=== PATIENT | male | born 1960 | race Caucasian/White ===

== ENCOUNTER 2020-04-03 11:59 | Inpatient (IN) ==
[2020-04-03 13:45] LABS: Bacteria,Urine Few per hpf (None-Few); Bilirubin,Urine Negative (Negative); Blood,Urine Small (Negative); Clarity,Urine Turbid (Clear); Color,Urine Yellow (Yellow); Glucose,Urine (UA) Normal (Normal); Ketones,Urine Negative (Negative); Leukocyte Esterase,Urine Moderate (Negative); Mucus,Urine Many per lpf (None-Few); Nitrite,Urine Positive (Negative); Protein,Urine 30 mg/dL (Neg-Trace); Specific Gravity,Urine 1.026 (1.010-1.025); Squamous Epithelial Cell,Urine Few per hpf (None-Few); WBC,Urine 50-100 per hpf (0-3)
[2020-04-03 14:02] LABS: Basophils % 0.5 %; Eosinophils # 0.1 K/mcL (0.0-0.6); Eosinophils % 1.5 %; Hematocrit 37.8 % (37.5-50.1); Hemoglobin 12.3 g/dL (12.9-16.9); Immature Granulocytes % 0.7 % (0-4); Lymphocytes # 1.4 K/mcL (0.6-4.6); Lymphocytes % 16.5 %; Mean Corpuscular HGB Conc 32.5 g/dL (31.6-35.5); Mean Corpuscular Hemoglobin 29.8 pg (28.0-33.3); Mean Corpuscular Volume 91.5 fL (83.0-100.0); Mean Platelet Volume 10.1 fL (9.4-12.4); Monocytes # 0.6 K/mcL (0.0-1.3); Monocytes % 7.3 %; Neutrophils # 6.1 K/mcL (1.6-8.9); Platelet Count 220 K/mcL (140-400); Red Blood Count 4.13 M/mcL (4.19-5.50); Red Cell Distribution Width 12.9 % (11.5-14.5); Segmented Neutrophils % 73.5 %; White Blood Count 8.3 K/mcL (4.3-11.1)
[2020-04-03 14:05] LABS: Platelet Estimate Normal (Normal)
[2020-04-03 14:31] LABS: Alanine Aminotransferase 36 Units/L (7-52); Albumin 3.8 g/dL (3.5-5.7); Albumin/Globulin Ratio 0.8 (1.1-2.2); Alkaline Phosphatase 111 Units/L (34-104); Aspartate Amino Transferase 22 Units/L (13-39); BUN/Creatinine Ratio 18 (6-26); Bilirubin,Direct 0.2 mg/dL (0.0-0.2); Bilirubin,Indirect 1.1 mg/dL (0.0-1.0); Bilirubin,Total 1.3 mg/dL (0.3-1.0); Blood Urea Nitrogen 15 mg/dL (8-23); Calcium 9.8 mg/dL (8.6-10.3); Carbon Dioxide 27 mEq/L (23-29); Chloride 94 mEq/L (98-107); Creatine Kinase 209 Units/L (30-223); Globulin 4.6 g/dL (2.4-3.5); Glucose 105 mg/dL (70-105); Magnesium 2.1 mg/dL (1.6-2.6); Osmolality,Calculated 271 (280-300); Potassium 4.4 mEq/L (3.5-5.1); Sodium 130 mEq/L (136-145); Total Protein 8.4 g/dL (6.4-8.9); Troponin I < 0.03 ng/mL (< 0.04); eGFR For African Americans > 60 (> 60); eGFR For Non-African Americans > 60 (> 60)
[2020-04-03] MEDS ORDERED: cefTRIAXone 1,000 MG in Water for inj. (sterile) 10 ML IVP ONE (14:34)
[2020-04-03] MEDS ORDERED: Azithromycin 500 MG in D5% in Water 250 ML IVPB ONE (14:42)
[2020-04-03] MEDS ORDERED: Ondansetron 4 MG/2 ML VIAL IVP PRN (15:52)
[2020-04-03] MEDS ORDERED: Naloxone 0.4 MG/ML INJ IVP PRN (15:52)
[2020-04-03] MEDS ORDERED: D5% in Water 1,000 ML IVC PRN (15:55)
[2020-04-03] MEDS ORDERED: *HR* Dextrose 50 % in Water (Vial) 50 ML VIAL IVP PRN (15:55)
[2020-04-03] MEDS ORDERED: Dextrose Gel 15 GM/37.5 ML TUBE PO PRN ×2 (15:55)
[2020-04-03] MEDS: Insulin LISPRO 300 UNITS/3 ML VIAL SUBQ SCH (22:00)
[2020-04-03] MEDS: Furosemide 20 MG TABLET PO SCH (22:01)
[2020-04-03] MEDS: haloperidoL 5 MG TABLET PO SCH ×2 (22:01→22:06)
[2020-04-03] MEDS: ARIPiprazole 10 MG TABLET PO SCH (22:05)
[2020-04-04] MEDS: haloperidoL 5 MG TABLET PO SCH ×6 (03:31→23:50)
[2020-04-04 06:37] LABS: Basophils % 0.5 %; Mean Platelet Volume 10.6 fL (9.4-12.4)
[2020-04-04 06:39] LABS: Eosinophils # 0.1 K/mcL (0.0-0.6); Eosinophils % 1.5 %; Hematocrit 37.7 % (37.5-50.1); Hemoglobin 12.2 g/dL (12.9-16.9); Immature Granulocytes % 1.1 % (0-4); Immature Platelets 3.4 % (1.1-6.1); Lymphocytes # 1.5 K/mcL (0.6-4.6); Lymphocytes % 19.8 %; Mean Corpuscular HGB Conc 32.4 g/dL (31.6-35.5); Mean Corpuscular Hemoglobin 29.5 pg (28.0-33.3); Mean Corpuscular Volume 91.3 fL (83.0-100.0); Monocytes # 0.7 K/mcL (0.0-1.3); Monocytes % 8.8 %; Neutrophils # 5.1 K/mcL (1.6-8.9); Platelet Count 189 K/mcL (140-400); Red Blood Count 4.13 M/mcL (4.19-5.50); Red Cell Distribution Width 12.9 % (11.5-14.5); Segmented Neutrophils % 68.3 %; White Blood Count 7.5 K/mcL (4.3-11.1)
[2020-04-04 07:58] LABS: BUN/Creatinine Ratio 17 (6-26); Blood Urea Nitrogen 13 mg/dL (8-23); Calcium 9.2 mg/dL (8.6-10.3); Carbon Dioxide 24 mEq/L (23-29); Chloride 94 mEq/L (98-107); Glucose 100 mg/dL (70-105); Osmolality,Calculated 270 (280-300); Potassium 4.1 mEq/L (3.5-5.1); Sodium 130 mEq/L (136-145); eGFR For African Americans > 60 (> 60); eGFR For Non-African Americans > 60 (> 60)
[2020-04-04] MEDS: Insulin LISPRO 300 UNITS/3 ML VIAL SUBQ SCH ×3 (08:49→17:46)
[2020-04-04] MEDS: cefTRIAXone 1,000 MG in Water for inj. (sterile) 10 ML IVP SCH (08:52)
[2020-04-04] MEDS: ARIPiprazole 10 MG TABLET PO SCH (08:53)
[2020-04-04] MEDS: Furosemide 20 MG TABLET PO SCH (08:53)
[2020-04-04] MEDS ORDERED: polyethylene glycoL 3350 17 GM POWD.PACK PO PRN (12:58)
[2020-04-04] MEDS ORDERED: Perflutren Lipid Microsphere 1.3 ML in 0.9 % Sodium Chloride 8.7 ML IVP PRN (13:04)
[2020-04-04] MEDS: *HR* HYDROcodone/Acet 5/325 mg TABLET PO SCH (17:47)
[2020-04-04] MEDS: Apixaban 5 MG TABLET PO SCH (21:07)
[2020-04-04] MEDS: Acetaminophen 325 MG TABLET PO PRN (21:08)
[2020-04-04] MEDS: Sennosides 8.6 MG TABLET PO SCH (21:08)
[2020-04-04] MEDS: Melatonin 3 MG TABLET PO SCH (21:15)
[2020-04-05 02:22] LABS: Hematocrit 36.1 % (37.5-50.1); Hemoglobin 11.7 g/dL (12.9-16.9); Mean Corpuscular HGB Conc 32.4 g/dL (31.6-35.5); Mean Corpuscular Hemoglobin 28.8 pg (28.0-33.3); Mean Corpuscular Volume 88.9 fL (83.0-100.0); Mean Platelet Volume 9.5 fL (9.4-12.4); Platelet Count 218 K/mcL (140-400); Red Blood Count 4.06 M/mcL (4.19-5.50); Red Cell Distribution Width 12.7 % (11.5-14.5); White Blood Count 6.8 K/mcL (4.3-11.1)
[2020-04-05 02:42] LABS: BUN/Creatinine Ratio 17 (6-26); Blood Urea Nitrogen 13 mg/dL (8-23); Carbon Dioxide 26 mEq/L (23-29); Chloride 94 mEq/L (98-107); Glucose 113 mg/dL (70-105); Osmolality,Calculated 269 (280-300); Potassium 3.8 mEq/L (3.5-5.1); Sodium 129 mEq/L (136-145); eGFR For African Americans > 60 (> 60); eGFR For Non-African Americans > 60 (> 60)
[2020-04-05] MEDS: haloperidoL 5 MG TABLET PO SCH ×4 (03:33→21:48)
[2020-04-05] MEDS: *HR* HYDROcodone/Acet 5/325 mg TABLET PO SCH ×2 (05:58→17:52)
[2020-04-05] MEDS: Insulin LISPRO 300 UNITS/3 ML VIAL SUBQ SCH ×3 (07:53→15:49)
[2020-04-05] MEDS ORDERED: Furosemide 20 MG TABLET PO SCH (09:00)
[2020-04-05] MEDS: ARIPiprazole 10 MG TABLET PO SCH (09:38)
[2020-04-05] MEDS: Apixaban 5 MG TABLET PO SCH ×2 (09:39→21:48)
[2020-04-05] MEDS: cefTRIAXone 1,000 MG in Water for inj. (sterile) 10 ML IVP SCH (09:39)
[2020-04-05] MEDS: Sennosides 8.6 MG TABLET PO SCH ×2 (09:39→21:47)
[2020-04-05] MEDS: Patient Taking Own Medication 1 EACH PO SCH (09:40)
[2020-04-05] MEDS: Furosemide 20 MG TABLET PO SCH (09:41)
[2020-04-05] MEDS: lisinopriL 5 MG TABLET PO SCH (09:41)
[2020-04-05] MEDS: Melatonin 3 MG TABLET PO SCH (21:48)
[2020-04-06] MEDS: *HR* HYDROcodone/Acet 5/325 mg TABLET PO SCH ×2 (06:00→18:42)
[2020-04-06 06:30] LABS: Basophils # 0.1 K/mcL (0.0-0.2); Basophils % 1.1 %; Eosinophils # 0.2 K/mcL (0.0-0.6); Eosinophils % 2.4 %; Hematocrit 36.3 % (37.5-50.1); Hemoglobin 11.9 g/dL (12.9-16.9); Immature Granulocytes % 2.1 % (0-4); Lymphocytes # 2.2 K/mcL (0.6-4.6); Lymphocytes % 30.6 %; Mean Corpuscular HGB Conc 32.8 g/dL (31.6-35.5); Mean Corpuscular Hemoglobin 29.2 pg (28.0-33.3); Mean Corpuscular Volume 89.2 fL (83.0-100.0); Mean Platelet Volume 9.7 fL (9.4-12.4); Monocytes # 0.9 K/mcL (0.0-1.3); Monocytes % 12.9 %; Neutrophils # 3.7 K/mcL (1.6-8.9); Platelet Count 245 K/mcL (140-400); Red Blood Count 4.07 M/mcL (4.19-5.50); Red Cell Distribution Width 12.8 % (11.5-14.5); Segmented Neutrophils % 50.9 %; White Blood Count 7.2 K/mcL (4.3-11.1)
[2020-04-06 07:12] LABS: Alanine Aminotransferase 37 Units/L (7-52); Albumin 3.4 g/dL (3.5-5.7); Albumin/Globulin Ratio 0.8 (1.1-2.2); Alkaline Phosphatase 127 Units/L (34-104); Aspartate Amino Transferase 28 Units/L (13-39); BUN/Creatinine Ratio 22 (6-26); Bilirubin,Total 0.8 mg/dL (0.3-1.0); Blood Urea Nitrogen 15 mg/dL (8-23); Calcium 8.9 mg/dL (8.6-10.3); Carbon Dioxide 24 mEq/L (23-29); Chloride 96 mEq/L (98-107); Globulin 4.5 g/dL (2.4-3.5); Glucose 105 mg/dL (70-105); Osmolality,Calculated 271 (280-300); Sodium 130 mEq/L (136-145); Total Protein 7.9 g/dL (6.4-8.9); eGFR For African Americans > 60 (> 60); eGFR For Non-African Americans > 60 (> 60)
[2020-04-06] MEDS: Insulin LISPRO 300 UNITS/3 ML VIAL SUBQ SCH ×3 (07:49→17:12)
[2020-04-06] MEDS: cefTRIAXone 1,000 MG in Water for inj. (sterile) 10 ML IVP SCH (08:35)
[2020-04-06] MEDS: Furosemide 20 MG TABLET PO SCH (08:36)
[2020-04-06] MEDS: Sennosides 8.6 MG TABLET PO SCH ×2 (08:36→20:50)
[2020-04-06] MEDS: ARIPiprazole 10 MG TABLET PO SCH (08:37)
[2020-04-06] MEDS: Apixaban 5 MG TABLET PO SCH ×2 (08:38→20:49)
[2020-04-06] MEDS: lisinopriL 5 MG TABLET PO SCH (08:40)
[2020-04-06] MEDS: haloperidoL 5 MG TABLET PO SCH ×2 (08:41→20:50)
[2020-04-06] MEDS: Patient Taking Own Medication 1 EACH PO SCH (08:46)
[2020-04-06] MEDS: Melatonin 3 MG TABLET PO SCH (20:50)
[2020-04-07] MEDS: *HR* HYDROcodone/Acet 5/325 mg TABLET PO SCH ×2 (04:58→17:15)
[2020-04-07] MEDS: Insulin LISPRO 300 UNITS/3 ML VIAL SUBQ SCH ×3 (09:35→16:32)
[2020-04-07] MEDS: Apixaban 5 MG TABLET PO SCH ×2 (09:39→19:45)
[2020-04-07] MEDS: lisinopriL 5 MG TABLET PO SCH (09:40)
[2020-04-07] MEDS: haloperidoL 5 MG TABLET PO SCH ×2 (09:40→19:45)
[2020-04-07] MEDS: Sennosides 8.6 MG TABLET PO SCH ×2 (09:40→19:45)
[2020-04-07] MEDS: Furosemide 20 MG TABLET PO SCH (09:40)
[2020-04-07] MEDS: ARIPiprazole 10 MG TABLET PO SCH (09:41)
[2020-04-07] MEDS: cefTRIAXone 1,000 MG in Water for inj. (sterile) 10 ML IVP SCH (09:41)
[2020-04-07] MEDS: Patient Taking Own Medication 1 EACH PO SCH (09:42)
[2020-04-07] MEDS: Melatonin 3 MG TABLET PO SCH (19:45)
[2020-04-07] MEDS: Acetaminophen 325 MG TABLET PO PRN (19:46)
[2020-04-08] MEDS: *HR* HYDROcodone/Acet 5/325 mg TABLET PO SCH ×2 (05:08→17:26)
[2020-04-08] MEDS: Apixaban 5 MG TABLET PO SCH ×2 (08:02→20:17)
[2020-04-08] MEDS: haloperidoL 5 MG TABLET PO SCH ×2 (08:02→20:17)
[2020-04-08] MEDS: lisinopriL 5 MG TABLET PO SCH (08:03)
[2020-04-08] MEDS: cephALEXin 500 MG CAPSULE PO SCH ×5 (08:03→20:17)
[2020-04-08] MEDS: ARIPiprazole 10 MG TABLET PO SCH (08:03)
[2020-04-08] MEDS: Sennosides 8.6 MG TABLET PO SCH ×2 (08:03→20:17)
[2020-04-08] MEDS: Insulin LISPRO 300 UNITS/3 ML VIAL SUBQ SCH ×3 (08:04→16:45)
[2020-04-08] MEDS: Patient Taking Own Medication 1 EACH PO SCH (08:04)
[2020-04-08] MEDS: Furosemide 20 MG TABLET PO SCH (08:10)
[2020-04-08] MEDS: Melatonin 3 MG TABLET PO SCH (20:16)
[2020-04-09] MEDS: *HR* HYDROcodone/Acet 5/325 mg TABLET PO SCH (05:35)
[2020-04-09 07:33] VITALS: BP 117/73
[2020-04-09] MEDS: lisinopriL 5 MG TABLET PO SCH (07:34)
[2020-04-09] MEDS: cephALEXin 500 MG CAPSULE PO SCH (07:34)
[2020-04-09] MEDS: ARIPiprazole 10 MG TABLET PO SCH (07:34)
[2020-04-09] MEDS: Sennosides 8.6 MG TABLET PO SCH (07:34)
[2020-04-09] MEDS: Furosemide 20 MG TABLET PO SCH (07:34)
[2020-04-09] MEDS: haloperidoL 5 MG TABLET PO SCH (07:35)
[2020-04-09] MEDS: Apixaban 5 MG TABLET PO SCH (07:35)
[2020-04-09] MEDS: Insulin LISPRO 300 UNITS/3 ML VIAL SUBQ SCH (07:35)
== END 2020-04-09 12:31 | DRG 689 ==
LOC: 3BNU 11:59 → EMEROOARM 11:59 → SUATTDRO 18:33 → 3BNU 20:20
PROVIDERS: ADMIT Internal Medicine; ATTEND Internal Medicine

== ENCOUNTER 2020-10-18 09:16 | Inpatient (IN) ==
[2020-10-18] MEDS ORDERED: Isovue-370 500 ML BOTTLE IVP ONE (09:19)
[2020-10-18] MEDS ORDERED: 0.9 % Sodium Chloride 1,000 ML IV ONE (09:29)
[2020-10-18 10:04] LABS: VBG HCO3 27 mEq/L (21-27); VBG PCO2 32 mmHg (41-51); VBG PH 7.54 pH Units (7.32-7.42); VBG PO2 213 mmHg (25-50)
[2020-10-18 10:07] LABS: INR 1.5; Prothrombin Time 17.5 Seconds (9.4-12.1)
[2020-10-18 10:10] LABS: Activated Partial Thrombo Time 24.5 Seconds (26.0-36.0)
[2020-10-18 10:16] LABS: BUN/Creatinine Ratio 16 (6-26); Blood Urea Nitrogen 14 mg/dL (8-23); Carbon Dioxide 25 mEq/L (23-29); Chloride 103 mEq/L (98-107); Glucose 115 mg/dL (70-105); Osmolality,Calculated 283 (280-300); Potassium 4.3 mEq/L (3.5-5.1); Sodium 136 mEq/L (136-145); eGFR For African Americans > 60 (> 60); eGFR For Non-African Americans > 60 (> 60)
[2020-10-18 10:33] LABS: Hematocrit 38.5 % (37.5-50.1); Mean Corpuscular HGB Conc 31.2 g/dL (31.6-35.5); Mean Corpuscular Hemoglobin 28.1 pg (28.0-33.3); Mean Corpuscular Volume 90.2 fL (83.0-100.0); Mean Platelet Volume 9.8 fL (9.4-12.4); Platelet Count 188 K/mcL (140-400); Red Blood Count 4.27 M/mcL (4.19-5.50); White Blood Count 8.7 K/mcL (4.3-11.1)
[2020-10-18 11:51] LABS: Troponin I < 0.03 ng/mL (< 0.04)
[2020-10-18 12:05] LABS: Bilirubin,Urine Negative (Negative); Blood,Urine Negative (Negative); Clarity,Urine Clear (Clear); Color,Urine Yellow (Yellow); Glucose,Urine (UA) Normal (Normal); Ketones,Urine Negative (Negative); Leukocyte Esterase,Urine Negative (Negative); Nitrite,Urine Negative (Negative); Protein,Urine Negative (Neg-Trace); Specific Gravity,Urine > 1.030 (1.010-1.025)
[2020-10-18] MEDS ORDERED: Acetaminophen 325 MG TABLET PO PRN (12:15)
[2020-10-18] MEDS ORDERED: Naloxone 0.4 MG/ML INJ IVP PRN (12:15)
[2020-10-18] MEDS ORDERED: Ondansetron 4 MG/2 ML VIAL IVP PRN (12:15)
[2020-10-18 12:30] LABS: Amphetamine Screen,Urine Negative ng/mL (Cutoff=1000); Barbiturate Screen,Urine Negative ng/mL (Cutoff=200); Benzodiazepines Screen,Urine Negative ng/mL (Cutoff=200); Cannabinoid Screen,Urine Negative ng/mL (Cutoff = 50); Cocaine Screen,Urine Negative ng/mL (Cutoff= 300); Opiate Screen,Urine Positive ng/mL (Cutoff=300); Phencyclidine Screen,Urine Negative ng/mL (Cutoff=25)
[2020-10-18] MEDS ORDERED: Haloperidol Lactate 5 MG/ML VIAL IVP ONE (15:15)
[2020-10-19 06:00] LABS: Basophils % 0.3 %; Eosinophils # 0.1 K/mcL (0.0-0.6); Eosinophils % 1.4 %; Hematocrit 33.9 % (37.5-50.1); Hemoglobin 10.9 g/dL (12.9-16.9); Immature Granulocytes % 0.5 % (0-4); Lymphocytes # 1.6 K/mcL (0.6-4.6); Lymphocytes % 16.8 %; Mean Corpuscular HGB Conc 32.2 g/dL (31.6-35.5); Mean Corpuscular Hemoglobin 28.6 pg (28.0-33.3); Mean Platelet Volume 10.1 fL (9.4-12.4); Monocytes # 0.7 K/mcL (0.0-1.3); Monocytes % 7.7 %; Neutrophils # 6.8 K/mcL (1.6-8.9); Platelet Count 186 K/mcL (140-400); Red Blood Count 3.81 M/mcL (4.19-5.50); Red Cell Distribution Width 14.1 % (11.5-14.5); Segmented Neutrophils % 73.3 %; White Blood Count 9.3 K/mcL (4.3-11.1)
[2020-10-19 06:26] LABS: BUN/Creatinine Ratio 17 (6-26); Blood Urea Nitrogen 13 mg/dL (8-23); Calcium 9.2 mg/dL (8.6-10.3); Carbon Dioxide 27 mEq/L (23-29); Chloride 101 mEq/L (98-107); Glucose 129 mg/dL (70-105); Osmolality,Calculated 284 (280-300); Potassium 3.6 mEq/L (3.5-5.1); Sodium 136 mEq/L (136-145); eGFR For African Americans > 60 (> 60); eGFR For Non-African Americans > 60 (> 60)
[2020-10-19] MEDS ORDERED: methocarbamoL 500 MG TABLET PO PRN (16:24)
[2020-10-19] MEDS ORDERED: polyethylene glycoL 3350 17 GM POWD.PACK PO PRN (16:24)
[2020-10-19] MEDS: *HR* HYDROcodone/Acet 5/325 mg TABLET PO SCH (17:15)
[2020-10-19] MEDS: ARIPiprazole 10 MG TABLET PO SCH (20:05)
[2020-10-19] MEDS: Sennosides/Docusate Sodium TABLET PO SCH (20:06)
[2020-10-19] MEDS: Melatonin 3 MG TABLET PO SCH (20:06)
[2020-10-19] MEDS: Apixaban 5 MG TABLET PO SCH (20:06)
[2020-10-19] MEDS: haloperidoL 5 MG TABLET PO SCH (20:07)
[2020-10-19] MEDS: Nystatin Cream 15 GM TUBE TP SCH (20:10)
[2020-10-20 01:58] LABS: Basophils # 0.1 K/mcL (0.0-0.2); Basophils % 0.5 %; Eosinophils # 0.1 K/mcL (0.0-0.6); Eosinophils % 1.2 %; Hematocrit 32.8 % (37.5-50.1); Hemoglobin 10.6 g/dL (12.9-16.9); Immature Granulocytes % 0.4 % (0-4); Lymphocytes # 1.9 K/mcL (0.6-4.6); Lymphocytes % 18.5 %; Mean Corpuscular HGB Conc 32.3 g/dL (31.6-35.5); Mean Corpuscular Hemoglobin 28.4 pg (28.0-33.3); Mean Corpuscular Volume 87.9 fL (83.0-100.0); Mean Platelet Volume 9.9 fL (9.4-12.4); Monocytes # 0.9 K/mcL (0.0-1.3); Monocytes % 8.6 %; Neutrophils # 7.2 K/mcL (1.6-8.9); Platelet Count 180 K/mcL (140-400); Red Blood Count 3.73 M/mcL (4.19-5.50); Segmented Neutrophils % 70.8 %; White Blood Count 10.1 K/mcL (4.3-11.1)
[2020-10-20 02:18] LABS: BUN/Creatinine Ratio 19 (6-26); Blood Urea Nitrogen 14 mg/dL (8-23); Calcium 9.2 mg/dL (8.6-10.3); Carbon Dioxide 25 mEq/L (23-29); Chloride 102 mEq/L (98-107); Glucose 121 mg/dL (70-105); Magnesium 1.8 mg/dL (1.6-2.6); Osmolality,Calculated 282 (280-300); Potassium 3.8 mEq/L (3.5-5.1); Sodium 135 mEq/L (136-145); eGFR For African Americans > 60 (> 60); eGFR For Non-African Americans > 60 (> 60)
[2020-10-20] MEDS: *HR* HYDROcodone/Acet 5/325 mg TABLET PO SCH ×2 (04:54→17:18)
[2020-10-20] MEDS: Sennosides/Docusate Sodium TABLET PO SCH ×2 (08:10→19:48)
[2020-10-20] MEDS: Cyanocobalamin (B-12) 1,000 MCG TABLET PO SCH (08:10)
[2020-10-20] MEDS: lisinopriL 5 MG TABLET PO SCH (08:11)
[2020-10-20] MEDS: haloperidoL 5 MG TABLET PO SCH ×2 (08:11→19:47)
[2020-10-20] MEDS: Apixaban 5 MG TABLET PO SCH ×2 (08:11→19:48)
[2020-10-20] MEDS: Cholecalciferol (D-3) 1,000 UNIT (25MCG) TABLET PO SCH (08:11)
[2020-10-20] MEDS: Nystatin Cream 15 GM TUBE TP SCH ×2 (11:20→19:49)
[2020-10-20] MEDS: Melatonin 3 MG TABLET PO SCH (19:47)
[2020-10-20] MEDS: ARIPiprazole 10 MG TABLET PO SCH (19:48)
[2020-10-21 05:32] LABS: Basophils % 0.4 %; Eosinophils # 0.2 K/mcL (0.0-0.6); Eosinophils % 1.5 %; Hematocrit 33.9 % (37.5-50.1); Immature Granulocytes % 0.6 % (0-4); Lymphocytes # 2.4 K/mcL (0.6-4.6); Lymphocytes % 23.4 %; Mean Corpuscular HGB Conc 32.4 g/dL (31.6-35.5); Mean Corpuscular Hemoglobin 28.3 pg (28.0-33.3); Mean Corpuscular Volume 87.1 fL (83.0-100.0); Mean Platelet Volume 9.7 fL (9.4-12.4); Monocytes % 9.5 %; Neutrophils # 6.7 K/mcL (1.6-8.9); Platelet Count 174 K/mcL (140-400); Red Blood Count 3.89 M/mcL (4.19-5.50); Segmented Neutrophils % 64.6 %; White Blood Count 10.4 K/mcL (4.3-11.1)
[2020-10-21] MEDS: *HR* HYDROcodone/Acet 5/325 mg TABLET PO SCH ×2 (05:34→17:31)
[2020-10-21 05:51] LABS: BUN/Creatinine Ratio 23 (6-26); Blood Urea Nitrogen 16 mg/dL (8-23); Calcium 9.1 mg/dL (8.6-10.3); Carbon Dioxide 25 mEq/L (23-29); Chloride 97 mEq/L (98-107); Glucose 107 mg/dL (70-105); Magnesium 1.8 mg/dL (1.6-2.6); Osmolality,Calculated 276 (280-300); Sodium 132 mEq/L (136-145); eGFR For African Americans > 60 (> 60); eGFR For Non-African Americans > 60 (> 60)
[2020-10-21 05:52] LABS: % Iron Saturation 12 % (20-55); Iron 29 mcg/dL (65-175); Transferrin 171 mg/dL (203-362)
[2020-10-21 06:10] LABS: Ferritin 151 ng/mL (20-250)
[2020-10-21 06:15] LABS: Folate 8.8 ng/mL (3.0-16.0)
[2020-10-21] MEDS: haloperidoL 5 MG TABLET PO SCH ×2 (08:35→19:42)
[2020-10-21] MEDS: Apixaban 5 MG TABLET PO SCH ×2 (08:35→19:42)
[2020-10-21] MEDS: Sennosides/Docusate Sodium TABLET PO SCH ×2 (08:35→19:41)
[2020-10-21] MEDS: Cyanocobalamin (B-12) 1,000 MCG TABLET PO SCH (08:36)
[2020-10-21] MEDS: lisinopriL 5 MG TABLET PO SCH (08:36)
[2020-10-21] MEDS: Cholecalciferol (D-3) 1,000 UNIT (25MCG) TABLET PO SCH (08:36)
[2020-10-21] MEDS: Nystatin Cream 15 GM TUBE TP SCH ×2 (08:37→19:42)
[2020-10-21] MEDS: Melatonin 3 MG TABLET PO SCH (19:42)
[2020-10-21] MEDS: ARIPiprazole 10 MG TABLET PO SCH (19:42)
[2020-10-22] MEDS: *HR* HYDROcodone/Acet 5/325 mg TABLET PO SCH (05:27)
[2020-10-22] MEDS ORDERED: acetaZOLAMIDE 250 MG TABLET PO SCH (09:00)
[2020-10-22 10:12] VITALS: BP 117/72; PULSE 76; TEMP 99.2; O2SAT 94
[2020-10-22] MEDS: Apixaban 5 MG TABLET PO SCH (10:14)
[2020-10-22] MEDS: lisinopriL 5 MG TABLET PO SCH (10:15)
[2020-10-22] MEDS: Sennosides/Docusate Sodium TABLET PO SCH (10:15)
[2020-10-22] MEDS: haloperidoL 5 MG TABLET PO SCH (10:15)
[2020-10-22] MEDS: Cholecalciferol (D-3) 1,000 UNIT (25MCG) TABLET PO SCH (10:15)
[2020-10-22] MEDS: Cyanocobalamin (B-12) 1,000 MCG TABLET PO SCH (10:15)
[2020-10-22] MEDS: Nystatin Cream 15 GM TUBE TP SCH (10:27)
[2020-10-22 11:46] LABS: Adenovirus Not Detected (Not Detect); Bordetella Pertussis Not Detected (Not Detect); Chlamydophila pneumoniae Not Detected (Not Detect); Coronavirus 229E Not Detected (Not Detect); Coronavirus HKU1 Not Detected (Not Detect); Coronavirus NL63 Not Detected (Not Detect); Coronavirus OC43 Not Detected (Not Detect); Human Metapneumovirus Not Detected (Not Detect); Human Rhinovirus/Enterovirus Not Detected (Not Detect); Influenza A Subtype 2009 H1 Not Detected (Not Detect); Influenza B Not Detected (Not Detect); Mycoplasma pneumoniae Not Detected (Not Detect); Parainfluenza Virus 1 Not Detected (Not Detect); Parainfluenza Virus 2 Not Detected (Not Detect); Parainfluenza Virus 3 Not Detected (Not Detect); Parainfluenza Virus 4 Not Detected (Not Detect); Respiratory Syncytial Virus Not Detected (Not Detect); SARS-CoV-2 Not Detected (Not Detect)
== END 2020-10-22 12:29 | DRG 56 ==
LOC: 3BNU 09:16 → EMEROOARM 09:16 → SUATTDRO 11:55 → 3BNU 12:22 → SUATTDRO 10-20 21:22
PROVIDERS: ADMIT Internal Medicine; ATTEND Internal Medicine